=== PATIENT | male | born 1955 | race Caucasian/White ===

== ENCOUNTER 2016-12-25 12:02 | Inpatient (IN) ==
[2016-12-25 13:03] LABS: AGAP 39; ALKALINE PHOSPHATASE 126 U/L (32-122); AMYLASE 73 U/L (20-200); BUN 17 mg/dL (8-22); CALCIUM 9.4 mg/dL (8.8-10.2); CHLORIDE 94 mmol/L (98-107); COSMO 296; GOT 13 U/L (10-34); GPT 13 U/L (10-44); LIPASE 18 U/L (13-60); POTASSIUM 4.3 mmol/L (3.5-5.1); SODIUM 140 mmol/L (136-145); TCO2 7 mmol/L (25-35); TOTAL BILIRUBIN 0.54 mg/dL (0.20-1.00); TOTAL PROTEIN 8.3 g/dL (6.3-8.3)
--- NOTE | 2016-12-25 13:23 | Diag Imaging Result Document ---
PROCEDURE NAME: ABDOMEN/PELVIS W/O CONTRAST - 12/25/2016 CT ABDOMEN AND PELVIS WITHOUT INTRAVENOUS CONTRAST: COMPARISON: No comparison films. FINDINGS: The patient has had a gastric procedure. I am unsure which type. Air and fluid fills a distended stomach. There is thickening to the proximal duodenal wall. Mild distention to the proximal small bowel loops. Prominent stool throughout the colon. No abscess. No free air. Normal spleen and adrenal glands. Normal noncontrasted pancreas and liver. No calcified stones or adjacent inflammation. There are several tiny renal stones. No hydronephrosis. Moderate atherosclerosis. No aneurysmal dilatation to the aorta. The prostate is enlarged measuring at least 4.7 x 6.3 cm. The urinary bladder is distended and appears normal. IMPRESSION: 1. Prior gastric procedure with an air and fluid distended stomach. 2. Thickening to the proximal duodenum consistent with duodenitis. Possible enteritis with slight distension to the proximal small bowel loops. 3. Constipation. 4. Tiny nonobstructing renal stones. No hydronephrosis. 5. Prostatic hypertrophy. A preliminary report was given at 12:56 p.m. [facility]
[2016-12-25] MEDS ORDERED: NS 1,000 ML ONE (14:08)
[2016-12-25 14:20] LABS: BASO% 0.1 % (0.0-0.8); HEMATOCRIT 55.6 % (42.0-52.0); HEMOGLOBIN 18.5 g/dL (14.0-18.0); IMM GRAN# 0.08 X1000 (0.0-0.04); IMM GRAN% 0.5 % (0.0-0.5); LYMPH# 0.88 X1000 (1.2-3.4); LYMPH% 5.7 % (20.5-51.1); MANUAL DIFF NEEDED? NO; MCH 31.3 PG (27-31); MCHC 33.3 g/dL (33-37); MCV 93.9 FL (81-99); MONO# 0.92 X1000 (0.11-0.59); NEUT% 87.7 % (42.2-75.2); PLT 261 X1000 (130-400); RBC 5.92 XMIL (4.7-6.1)
[2016-12-25] MEDS ORDERED: NS 1,000 ML IV ONE ×4 (14:22→16:23)
[2016-12-25 14:23] LABS: ALLEN TEST YES; BE -25.3 mmoll (-3.0-3.0); BLOOD TYPE ARTERIAL; DRAW SITE R RADIAL; METHB 1.4 % (0.0-1.5); O2(CT) 24.9 mL/dL (15.0-23.0); PO2(98.6) 126 mmHg (60-100); SAMPLE BLOOD; SAO2 99.7 % (95.0-100.0); THB 18.2 g/dL (11.5-17.4)
[2016-12-25] MEDS ORDERED: HUMULIN R IV ONE ×2 (14:23→17:59)
[2016-12-25 14:25] LABS: MODALITY ROOM AIR; PCO2(98.6) 11 mmHg (35-45); pH(98.6) 7.04 (7.35-7.45)
[2016-12-25] MEDS ORDERED: ZOSYN 3.375 GM/NS 3.375 GM/50 ML IVPB IV ONE (14:33)
[2016-12-25] MEDS ORDERED: VANCOMYCIN 1 GM/NS 1 GM/250 ML IVPB IV SCH (14:45)
[2016-12-25] MEDS ORDERED: DILAUDID ONE (15:08)
[2016-12-25] MEDS ORDERED: DILAUDID IV ONE (15:15)
[2016-12-25 15:31] LABS: INR 1.08; PROTIME 11.4 Seconds (9.2-11.7); PTT 23.8 Seconds (22.0-36.0)
[2016-12-25] MEDS ORDERED: SODIUM CHLORIDE 0.9% INJ PRN (15:38)
[2016-12-25] MEDS ORDERED: ZOFRAN IV PRN ×2 (15:38→17:59)
[2016-12-25] MEDS ORDERED: PHENERGAN IV PRN (15:38)
[2016-12-25] MEDS ORDERED: SODIUM CHLORIDE 0.9% INJ SCH (15:45)
[2016-12-25] MEDS: HUMULIN R 100 UNIT in NS 100 ML IV SCH ×2 (16:12→17:26)
--- NOTE | 2016-12-25 16:17 | PROVIDER DOCUMENTATION ---
This chart was entered by Elisha Sanchez Scribe, acting as scribe for Catrachito Gamez MD. HPI-Abdominal Pain/GI Problem - General Chief Complaint: Abdominal Pain Stated Complaint: POSS BOWEL OBSTRUCTION Time Seen by Provider: 12/25/16 13:58 Source: patient, family () Allergies/Adverse Reactions: Patient Allergies Allergy/AdvReac Type Severity Reaction Status Date / Time No Known Allergies Allergy Verified 12/25/16 14:19 Home Medications: Home Medication List Medication Instructions Recorded Confirmed Last Taken Type Acai Samano Extract [Acai] 1 cap PO DAILY 12/25/16 12/25/16 12/25/16 07:00 History Garlic [Garlic Oil] 1 cap PO DAILY 12/25/16 12/25/16 12/25/16 07:00 History - History of Present Illness-ABD Nature of Presenting Problems: Pt is 61 y/o M presents to the ED with abdominal pain. Pt states pain started Friday. Pt states has not had a BM since Friday. Pt states N and V. Pt denies passing of gas. Pt states gastric bypass in 1991. Abdominal Pain Onset Location: reports: RUQ, LUQ Pain Radiation: reports: no radiation Quality of Pain: reports: sharp Severity in ED: reports: severe Onset/Duration: reports: 4 days ago Timing: reports: still present, getting worse Activities at Onset: reports: light activity Modifying Factors: improves with: nothing Associated Symptoms: reports: constipation, loss of appetite, nausea, vomiting. denies: anxiety, arm pain, back/neck pain, chest pain, cough, diaphoresis, diarrhea, dizziness, EENT symptoms, fatigue, fever/chills, genitourinary problems, headaches, heartburn, joint pain, malaise, muscle aches, sinus congestion/drainage, rash, seizure, shortness of breath, sensory/motor loss, pain with inspiration, swelling/mass in abdomen, syncope, weakness, trouble walking Last BM: 4 days ago Dark Stools Present?: reports: none noticed Rectal Bleeding: reports: none Rectal Pain: reports: none Emesis Description: reports: clear Bruising or Bleeding Gums?: No Similar Symptoms Previously?: Yes Recently seen or treated by another doctor?: No Review of Systems - Adult - REVIEW OF SYSTEMS - ADULT Constitutional: denies: chills, fever Eyes: denies: blurred vision, double vision Ears, Nose, Mouth & Throat: denies: ear pain, nose pain, throat pain Cardiovascular: reports: irregular heart rate (tachy). denies: chest pain, heart murmur Respiratory: denies: cough, shortness of breath, wheezing Gastrointestinal: reports: abdominal pain (RUQ and LUQ), constipation, nausea, poor appetite, vomiting Genitourinary: denies: dysuria, hematuria Musculoskeletal: denies: bone pain, joint pain, neck pain Integumentary: denies: hives, itching Neurological: denies: dizziness/vertigo, headache/migraines, syncope Psychiatric: reports: no symptoms reported Endocrine: reports: no symptoms reported Hematologic/Lymphatic: reports: no symptoms reported Allergic/Immunologic: reports: no symptoms reported All Other Systems: Reviewed and Negative Past History - Adult - PAST MEDICAL HISTORY-ADULT Review of Records: reports: Nursing Assessment Review, Medications Reviewed, Social history reviewed & non-contributory. Major Childhood Illnesses: reports: denies history Cardiovascular: reports: HTN Respiratory: reports: denies history Gastrointestinal: reports: denies history Obstetrical/Gynecological: reports: denies history Genitourinary: reports: denies history Musculoskeletal: reports: denies history Neurological: reports: denies history Endocrine/Immune: reports: Diabetes Other Conditions: reports: denies history - PRIOR SURGERIES/PROCEDURES Surgical/Procedure History: reports: appendectomy - IMMUNIZATION STATUS Childhood Immunizations: See Nurse Assessment Flu Vaccine: See Nurse Assessment - FAMILY HISTORY Family History: reviewed, not pertinent - SOCIAL HISTORY Smoking: denies Substance Use: alcohol Alcohol Use Frequency: rarely Number of drinks per typical drinking period:: 2 drinks Living Situation: family Physical Exam-General - PHYSICAL EXAM-ADULT Initial Vital Signs Reviewed: Yes - CONSTITUTIONAL General Appearance: alert, severe distress. negative: appears well (ill in appearance) - EYES Eyes: PERRL/EOMI, pale conjunctivae - HEAD, EARS, NOSE, MOUTH & THROAT HENMT: normocephalic/atraumatic, normal ENT inspection. negative: moist mucous membranes (dry) - NECK Neck: supple, normal inspection - RESPIRATORY Respiratory: chest non-tender, lungs clear, increased rate - CARDIOVASCULAR Cardiovascular: normal peripheral pulses, no edema, tachycardia - GASTROINTESTINAL (ABDOMEN) Abdominal Exam: abnormal bowel sounds (hypo active bowel sounds), distended, guarding, tenderness (RUQ and LUQ). negative: soft - LYMPHATIC Lymphatic: no adenopathy - MUSCULOSKELETAL Back Exam: normal inspection, no CVA tenderness, no vertebral tenderness Extremity: normal range of motion, non-tender - SKIN Integumentary: normal color, normal turgor, warm/dry - NEUROLOGIC Neurologic: grossly normal, no motor/sensory deficits - PSYCHIATRIC Psych/Mental Status: normal mood/affect, oriented x 3 Progress - PLAN OF CARE/RESULTS Progress/Plan/Lab Results: Vital Signs - 8 hr 12/25/16 12:06 Temperature 97.5 F L Pulse Rate 130 H Respiratory Rate 18 Blood Pressure 198/93 O2 Sat by Pulse Oximetry 99 Laboratory Results - last 24 hr 12/25/16 12/25/16 12:20 12:20 WBC Cancelled RBC Cancelled Hgb Cancelled Hct Cancelled MCV Cancelled MCH Cancelled MCHC Cancelled RDW Std Deviation Cancelled Plt Count Cancelled MPV Cancelled Immature Gran % (Auto) Cancelled Neut % (Auto) Cancelled Lymph % (Auto) Cancelled [place] % (Auto) Cancelled Eos % (Auto) Cancelled Baso % (Auto) Cancelled Immature Gran # (Auto) Cancelled Neut # (Auto) Cancelled Lymph # (Auto) Cancelled [place] # (Auto) Cancelled Eos # (Auto) Cancelled Baso # (Auto) Cancelled Corrected WBC (Man) Cancelled Sodium 140 Potassium 4.3 Chloride 94 L Carbon Dioxide 7 L Anion Gap 39 BUN 17 Creatinine 1.2 Estimated GFR/1.73 m2 > 60 BUN/Creatinine Ratio 14 Glucose 373 H Calculated Osmolality 296 Calcium 9.4 Total Bilirubin 0.54 AST 13 ALT 13 Alkaline Phosphatase 126 H Total Protein 8.3 Albumin 5.0 Globulin 3.3 Albumin/Globulin Ratio 1.5 Amylase 73 Lipase 18 Orders Category Date Time Status ABDOMEN/PELVIS W/O CONTRAST [CT] Stat Exams 12/25/16 12:18 Completed ABG [RESP] Routine Lab 12/25/16 14:09 Ordered AMYLASE [CHEM] Stat Lab 12/25/16 12:20 Completed CBC WITH ELECTRONIC DIFF [HEME] Stat Lab 12/25/16 13:43 Results COMPREHENSIVE METABOLIC PANEL [CHEM] Stat Lab 12/25/16 12:20 Completed LIPASE [CHEM] Stat Lab 12/25/16 12:20 Completed 0.9% Sodium Chloride Inj [Ns] 1,000 ml Med 12/25/16 14:08 Discontinued .ROUTE As Directed Result Diagrams: 12/25/16 13:43 12/25/16 12:20 - CT/MRI 1 CT Study: Abdomen Impression: Abnormal (distended stomach with air and fluid. thickening to the duodenum and mild distention to the proximal small bowel loops -suspect duodenitis and enteritis. constipation. tiny renal stone. no hydronephrosis. prostatic hyperytrophy.) CT Results: prior gastric procedure. not sure what type. - CONSULTS/PCP/HOSPITALIST Notification #1 *Consult/PCP/Hospitalist*: Dr. Alcala Time Discussed: 14:50 Reason/Comments: Dr. Gamez consulted with Dr. Alcala about admit of Pt Consult Disposition: Admit Departure - Departure Time of Disposition Decision: 14:50 DIAGNOSIS: Acute metabolic encephalopathy Disposition: ADMITTED INPATIENT 09 Certified Medical Emergency: Emergent Condition: Critical Referrals and Follow-Ups: Margarito Walsh, [Primary Care Provider] - - Critical Care Note This patient required my direct & personal management of CC.: Yes Total Time (mins): 45 Critical Care Statement: This patient required my direct personal management to treat or rule out processes, the absence of which, could potentiallly result in sudden, clinically significant life or limb threatening deterioration. This chart was documented by the indicated scribe, (Elisha Sanchez Scribe) and accurately reflects the services I performed and decisions made by me, Catrachito Gamez MD, as attested by the provider's signature.
--- NOTE | 2016-12-25 16:42 | HISTORY AND PHYSICAL ---
PRIMARY CARE PHYSICIAN: Dr. Margarito Walsh. CHIEF COMPLAINT: Abdominal pain, nausea, vomiting. HISTORY OF PRESENT ILLNESS: Mr. Cruz is a 61-year-old, male with a history of type 2 diabetes, and hypertension who comes to the ER today with 3 days of worsening abdominal pain, nausea, and vomiting. The pain began on Friday after he ate and he started having upper quadrant pain on both sides, this progressed to nausea and vomiting. He denies any diarrhea or fevers but today he started having intense chills. He denies any hematochezia or hematemesis, in fact he has had no bowel movements or passed any gas since Friday. The pain progressed and he is in severe pain which brought him to the ER. He denies any chest pain or shortness of breath. No cough, congestion. No lower extremity edema or pain. In the ER, he had a CT of the abdomen and pelvis done and it showed proximal duodenitis and possible enteritis with slight distention of the proximal small bowel loops, constipation and air and fluid distended stomach. His lab work is also consistent with sepsis and diabetic ketoacidosis. Blood cultures have been obtained. Surgery has been consulted and DKA protocol has been initiated. He is now going to be admitted to the ICU. PAST MEDICAL HISTORY: 1. Hypertension. 2. Diabetes mellitus. 3. History of obesity status post gastric bypass surgery. PAST SURGICAL HISTORY: 1. Gastric ring placement in 1991 2. Appendectomy 3. Right shoulder arthroscopy. SOCIAL HISTORY: There is no history of tobacco use. He drinks rare alcohol. There is no drug use. He is . is at the bedside. FAMILY HISTORY: Noncontributory. REVIEW OF SYSTEMS: Fourteen-point review of systems obtained and found to be negative with the exception of the HPI. HOME MEDICATIONS: Currently being compiled. ALLERGIES: No known drug allergies. PHYSICAL EXAMINATION: VITAL SIGNS: Blood pressure is 185/143, heart rate 133, respiratory rate 22, O2 saturation 98% on room air. Temperature is 97.5 degrees. GENERAL: This is a well-developed, well-nourished, male, lying in hospital bed. No acute distress. NEUROLOGIC: The patient is awake, alert, and oriented. Follows commands without focal deficits. HEENT: Head is atraumatic and normocephalic. Pupils are equal, round, and reactive to light. Oral mucosa is moist. Trachea is midline. There is no JVD or carotid bruits. CHEST: Clear to auscultation bilaterally. CV: Tachy and regular. S1, S2 is noted. GI: Slightly distended and severely tender to palpation in both upper quadrants. Bowel sounds are hypoactive. EXTREMITIES: Without edema, clubbing or cyanosis. Pulses are palpable bilaterally. DIAGNOSTIC DATA: CT of abdomen and pelvis, please see HPI. LABORATORY DATA: WBC 15.46, hemoglobin 18.5, hematocrit 55.6, platelet count 261,000. PT 11.4, INR 1.08. ABG on room air pH 7.04, CO2 11, O2 126, bicarb 5.2, lactate 2.6. Sodium 140, potassium 4.3, chloride 94, CO2 7, anion gap 39. BUN 17, creatinine 1.2, glucose is 373. Alkaline phosphatase is 126. Other LFTs are within normal limits. Troponin is negative. Lipase 18. ASSESSMENT AND PLAN: 1. Sepsis: Criteria is met with leukocytosis, tachycardia and source of colitis /duodenitis. Blood cultures have been obtained and aggressive fluid resuscitation and broad-spectrum antibiotics have been initiated. 2. DKA: Likely secondary to sepsis and colitis. DKA protocol has been initiated. We will continue to follow his electrolytes and fluid volume status closely. 3. Abdominal pain/colitis: Antibiotics have been initiated and we have consulted Surgery given the pain is out of proportion to his CT findings. There is no evidence of perforation on CT. An NG tube has been ordered and this should help with some of his symptoms. 4. We are going to check hemoglobin A1c, thyroid function in the morning. He will be going to the ICU for the first 24 hours at least. 5. DVT prophylaxis with SCDs and TEDs given the possibility of surgery. We have also ordered IV Protonix given his duodenitis. Further recommendations to follow. Dictated by JOO Aggarwal for Katie Alcala MD cc: JOO Aggarwal MD Thomas E. Lockard, DO The patient was seen and examined by me. I agree with the assessment and plan as dictated. The plan of care was discussed with the patient and his at the bedside. CHERYL
[2016-12-25] MEDS: PROTONIX IV SCH (16:50)
[2016-12-25 17:36] LABS: URINE MICRO REVIEW NEEDED? NO; URINE SOURCE CLEAN CATCH
[2016-12-25 17:47] LABS: BILIRUBIN URINE NEGATIVE (NEGATIVE); BLOOD URINE SMALL (NEGATIVE); COLOR YELLOW; GLUCOSE URINE >1000 mg/dL (NEGATIVE); LEUKOCYTES URINE NEGATIVE (NEGATIVE); NITRITE URINE NEGATIVE (NEGATIVE); PROTEIN URINE 50 mg/dL (NEGATIVE); SP GRAVITY URINE 1.016; TURBIDITY URINE CLEAR (CLEAR); UR EPITHELIAL CELLS <10 /HPF (<10); URINE BACTERIA NEGATIVE /HPF; URINE RBC <10 /HPF (<10); URINE WBC <10 /HPF (<10); UROBILINOGEN URINE NORMAL (NORMAL)
[2016-12-25] MEDS ORDERED: POTASSIUM CHLORIDE 40 MEQ in NS 250 ML IV PRN (17:59)
[2016-12-25] MEDS ORDERED: HUMULIN R 100 UNIT in NS 99 ML IV SCH (17:59)
[2016-12-25] MEDS ORDERED: SODIUM PHOSPHATE 30 MMOL in D5W 250 ML IV PRN (17:59)
[2016-12-25] MEDS ORDERED: D50W SYRINGE IV PRN (17:59)
[2016-12-25] MEDS ORDERED: NS 1,000 ML IV SCH (17:59)
[2016-12-25] MEDS ORDERED: MAGNESIUM SULFATE 2 GM/S.W.I. 2 GM/50 ML IVPB IV PRN (17:59)
[2016-12-25 18:00] LABS: ALLEN TEST YES; BE -21.1 mmoll (-3.0-3.0); BLOOD TYPE ARTERIAL; DRAW SITE R RADIAL; METHB 1.7 % (0.0-1.5); PO2(98.6) 96 mmHg (60-100); SAMPLE BLOOD; SAO2 99.2 % (95.0-100.0); THB 16.3 g/dL (11.5-17.4)
[2016-12-25 18:02] LABS: pH(98.6) 7.15 (7.35-7.45)
[2016-12-25 18:03] LABS: MODALITY ROOM AIR; PCO2(98.6) 15 mmHg (35-45)
[2016-12-25] MEDS: DILAUDID IV PRN (18:12)
[2016-12-25 20:04] LABS: AGAP 28; BUN 20 mg/dL (8-22); CALCIUM 7.9 mg/dL (8.8-10.2); CHLORIDE 107 mmol/L (98-107); COSMO 298; POTASSIUM 3.7 mmol/L (3.5-5.1); SODIUM 142 mmol/L (136-145); TCO2 7 mmol/L (25-35)
[2016-12-25] MEDS: 1/2 NS 1,000 ML IV SCH (20:30)
[2016-12-25] MEDS: POTASSIUM CHLORIDE 20 MEQ in NS 100 ML IV PRN (20:50)
[2016-12-25 21:33] LABS: ALLEN TEST YES; BE -15.6 mmoll (-3.0-3.0); BLOOD TYPE ARTERIAL; DRAW SITE R RADIAL; METHB 1.5 % (0.0-1.5); O2(CT) 21.2 mL/dL (15.0-23.0); PCO2(98.6) 25 mmHg (35-45); PO2(98.6) 90 mmHg (60-100); SAMPLE BLOOD; SAO2 99.5 % (95.0-100.0); THB 15.7 g/dL (11.5-17.4); pH(98.6) 7.22 (7.35-7.45)
[2016-12-25 21:35] LABS: MODALITY ROOM AIR
[2016-12-25 21:58] LABS: AGAP 29; ALBUMIN 3.9 g/dL (3.5-5.0); BUN 19 mg/dL (8-22); CALCIUM 8.2 mg/dL (8.8-10.2); CHLORIDE 109 mmol/L (98-107); COSMO 300; POTASSIUM 3.9 mmol/L (3.5-5.1); SODIUM 144 mmol/L (136-145); TCO2 6 mmol/L (25-35)
[2016-12-25] MEDS: ZOSYN 3.375 GM/NS 3.375 GM/50 ML IVPB IV SCH (23:00)
[2016-12-26 00:43] LABS: AGAP 21; BUN 19 mg/dL (8-22); CALCIUM 8.2 mg/dL (8.8-10.2); CHLORIDE 110 mmol/L (98-107); COSMO 297; POTASSIUM 4.3 mmol/L (3.5-5.1); SODIUM 144 mmol/L (136-145); TCO2 13 mmol/L (25-35)
[2016-12-26 02:01] LABS: ALLEN TEST YES; BE -12.8 mmoll (-3.0-3.0); BLOOD TYPE ARTERIAL; DRAW SITE R RADIAL; METHB 1.5 % (0.0-1.5); O2(CT) 21.2 mL/dL (15.0-23.0); PCO2(98.6) 28 mmHg (35-45); PO2(98.6) 90 mmHg (60-100); SAMPLE BLOOD; SAO2 99.6 % (95.0-100.0); THB 15.7 g/dL (11.5-17.4); pH(98.6) 7.26 (7.35-7.45)
[2016-12-26 02:03] LABS: MODALITY ROOM AIR
[2016-12-26] MEDS: DILAUDID IV PRN ×5 (02:35→20:50)
[2016-12-26] MEDS: POTASSIUM CHLORIDE 20 MEQ in NS 100 ML IV PRN ×4 (03:12→16:12)
[2016-12-26] MEDS: D5 NS 1,000 ML IV SCH ×4 (04:02→11:30)
[2016-12-26] MEDS: 1/2 NS 1,000 ML IV SCH ×2 (04:11→11:38)
[2016-12-26] MEDS: ZOSYN 3.375 GM/NS 3.375 GM/50 ML IVPB IV SCH ×3 (04:45→15:54)
[2016-12-26 05:34] LABS: ALLEN TEST YES; BE -12.1 mmoll (-3.0-3.0); BLOOD TYPE ARTERIAL; DRAW SITE L RADIAL; METHB 1.3 % (0.0-1.5); O2(CT) 20.9 mL/dL (15.0-23.0); PCO2(98.6) 29 mmHg (35-45); PO2(98.6) 89 mmHg (60-100); SAMPLE BLOOD; SAO2 100.6 % (95.0-100.0); THB 15.4 g/dL (11.5-17.4); pH(98.6) 7.27 (7.35-7.45)
[2016-12-26 05:35] LABS: MODALITY ROOM AIR
[2016-12-26] MEDS: VANCOMYCIN 1 GM/NS 1 GM/250 ML IVPB IV SCH ×2 (05:40→17:50)
[2016-12-26 05:44] LABS: HEMATOCRIT 43.8 % (42.0-52.0); HEMOGLOBIN 15.1 g/dL (14.0-18.0); MCH 31.9 PG (27-31); MCHC 34.5 g/dL (33-37); MCV 92.4 FL (81-99); MPV 9.5 FL (7.4-10.4); RBC 4.74 XMIL (4.7-6.1)
[2016-12-26 06:05] LABS: HEMOGLOBIN A1C 13.1 % (4.8-6.0)
[2016-12-26 06:33] LABS: HDL 39 mg/dL (35-55); LDL 115 mg/dL; TRIGLYCERIDES 87 mg/dL (39-160); VLDL 17 mg/dL
[2016-12-26 06:44] LABS: AGAP 18; BUN 17 mg/dL (8-22); CALCIUM 8.2 mg/dL (8.8-10.2); CHLORIDE 115 mmol/L (98-107); COSMO 299; POTASSIUM 3.9 mmol/L (3.5-5.1); SODIUM 146 mmol/L (136-145); TCO2 13 mmol/L (25-35)
--- NOTE | 2016-12-26 07:45 | Diag Imaging Result Document ---
PROCEDURE NAME: FLAT/UPRIGHT ABD/1 VIEW CHEST - 12/26/2016 PLAIN RADIOGRAPH OF THE CHEST AND ABDOMEN, 3 VIEWS: COMPARISON: None available. FINDINGS: There is increased stool seen throughout the colon suggesting constipation. There is no obstructive bowel pattern. There is no evidence of large-volume free abdominal gas. There is no discrete organomegaly. Inspiration is suboptimal. There is suggestion of mild bibasilar atelectasis. The lungs are grossly clear, otherwise. Cardiac silhouette is unremarkable. There is an NG tube in place but the tip is probably only barely below the gastroesophageal junction. Advancement of 4-5 cm is recommended for a more optimal position. IMPRESSION: 1. Constipation. 2. Suboptimal positioning of the NG tube. 3. Mild atelectasis at the lung base.
[2016-12-26] MEDS ORDERED: DILAUDID IV ONE (07:47)
[2016-12-26 08:01] LABS: ACETONE SERUM SMALL (NEGATIVE)
[2016-12-26] MEDS ORDERED: LOVENOX SUBQ SCH (09:00)
[2016-12-26 10:21] LABS: BLOOD TYPE ARTERIAL; PCO2(98.6) 32 mmHg (35-45); PO2(98.6) 86 mmHg (60-100); SAMPLE BLOOD; pH(98.6) 7.29 (7.35-7.45)
[2016-12-26 10:22] LABS: METHB 0.8 % (0.0-1.5); MODALITY ROOM AIR; O2(CT) 20.3 mL/dL (15.0-23.0); SAO2 100.9 % (95.0-100.0); THB 14.9 g/dL (11.5-17.4)
[2016-12-26 10:23] LABS: ALLEN TEST YES; DRAW SITE L RADIAL
[2016-12-26 10:27] LABS: AGAP 14; BUN 16 mg/dL (8-22); CALCIUM 8.2 mg/dL (8.8-10.2); CHLORIDE 115 mmol/L (98-107); COSMO 299; POTASSIUM 4.1 mmol/L (3.5-5.1); SODIUM 146 mmol/L (136-145); TCO2 17 mmol/L (25-35)
--- NOTE | 2016-12-26 10:59 | CONSULTATION ---
DATE OF CONSULTATION: 12/26/2016 Mr. Catrachito Cruz is a 61-year-old white male who was admitted yesterday through the emergency department to our ICU with significant dehydration and metabolic acidosis. He had a 3-day history of dry heaving or vomiting. Friday he was running a chain saw at his home to take care a down branch. That evening he began experiencing upper abdominal pain and had vomiting. 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 He would throw-up but no fluid would come out. His upper abdominal pain was intermittent and persistent and Friday he called his daughter, who lives in [place], to come back to [place] because he was sick. He was brought to the emergency department with upper abdominal pain and dry heaves. He was admitted to our ICU for resuscitation. We were asked to evaluate him because of his abdominal pain and his persistent vomiting. He states in 1991 in [place], some type of gastric ring was placed for weight loss. PAST MEDICAL HISTORY: He is a diabetic. He has lost weight over the last year. He used to weigh 230 pounds, at [place] he was 175 pounds, and now weighs 154 pounds. His family feels that he has had intermittent symptoms of this type for sometime. He admits to gastroesophageal reflux disease. He has been diagnosed with prostatitis and treated by Dr. Palafox in the past. MEDICATIONS: None, except vitamins. ALLERGIES: No known drug allergies. 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 He lives in [place]. He has a family member that is a nurse and actually works at [employer] in [place] and is back at [place] frequently. That is his . He also has a daughter. He does not smoke. FAMILY HISTORY: Noncontributory. REVIEW OF SYSTEMS: A 14-point review of systems was performed. Except for the history of present illness, was essentially negative. PHYSICAL EXAMINATION: General Appearance: On exam, Mr. Cruz is in the ICU. He is a middle aged male. He has an NG tube in place, which is a small NG tube. He is awake, cooperative. He has required some pain medicine for some upper abdominal discomfort. Vital Signs: His vital signs have improved since admission. He is afebrile. His heart rate is 81. Blood pressure 127/68. O2 saturation 98% on room air. He is 5 feet, 8 inches. He weighs 154 pounds. HEENT/Neck: He is voiding. He has no jaundice. No oral lesions. No cervical or supraclavicular lymphadenopathy. Heart: Has a regular rate. Abdomen: Flat. It seems to be tender in the upper abdomen, but he does not have an acute abdomen. He has an upper midline incision which is well-healed without, evidence of hernia. He had no costovertebral tenderness. Rectal Examination: Was not performed. Extremities: He does have palpable femoral pulses. No peripheral edema. Neurological: He has no focal deficits. LABORATORY DATA: On admission his white blood cell count was 15.4 and that is dropped to 11 this morning. His hematocrit on admission was 55 and it is 43 this morning. His acidosis has improved. His pH is 7.27. His base deficit still 12, but it was 21 on admission. His lactate is 0.60. His glucose is 214 at 2:50. BUN and creatinine are 17 and 0.9. His carbon dioxide has increased from 7 to 13. He is on vancomycin and Zosyn prophylactically. He has a receiving IV fluids at 125 mL an hour. He is also receiving Nexium. A CT scan of his abdomen and pelvis performed yesterday documents this gastric ring. This ring create the small pouch proximally and the normal stomach distally. There was fluid and air in the stomach. There was no obvious twisting of the stomach that is possible. He also had some duodenitis. He had plenty of stool in his colon. The rest of the small bowel was not dilated. There was no evidence of free air. An abdominal film today suggested that the NG tube may be in poor position and it has been advanced since that x-ray. Again, there is no evidence of free air. His chest x-ray is clear, except for some atelectasis. IMPRESSION: A 61-year-old man with significant weight loss over the last year, with a history of some type of gastric ring that was placed as an open procedure and [place] in 1991. I feel that this ring has been causing him symptoms, but these symptoms have become more acute over the last 3 days. My inclination is that this gastric ring most likely will have to be removed because of his symptoms. The family is interested in seeing a bariatric surgeon for possible redo surgery if the ring is removed. I have reviewed all his information with his at the bedside in our ICU and I will speak with the hospitalists. I do agree with continued IV hydration and NG suction at this time. cc: Julita Pereira MD
[2016-12-26] MEDS ORDERED: SODIUM PHOSPHATE IV ONE (12:00)
[2016-12-26] MEDS ORDERED: NS IV ONE (12:00)
--- NOTE | 2016-12-26 12:21 | PROGRESS NOTE ---
DATE: 12/26/2016 SUBJECTIVE: The patient continues to complain of persistent lower abdominal pain. He has had very little output out of the NG tube. OBJECTIVE: Vital Signs: Temperature 97.8 degrees, blood pressure 127/68, heart rate 81, respirations 13, O2 saturation 98% on room air. General: This is an elderly male, lying in bed in no acute distress. HEENT: Head normocephalic, atraumatic. Heart: S1 and S2 normal. Regular rate and rhythm. Lungs: Clear to auscultation bilaterally. Abdomen: Hypoactive bowel sounds. Soft. Diffuse tenderness. Extremities: No edema. No cyanosis. No calf tenderness. Neurologic: The patient is alert oriented x3. LABORATORIES: White blood cell count 11, hemoglobin 15, hematocrit 43, platelets 187,000. Sodium 146, potassium 4.1, chloride 115, CO2 of 17, BUN 16, creatinine 1, glucose 232, calcium 8.2, phosphorus 1.8. ASSESSMENT AND PLAN: 1. Diabetic ketoacidosis. The anion gap has closed. We will continue on the insulin drip for now, since the patient is n.p.o. We will continue to monitor the Accu-Cheks every hour. 2. Abdominal pain with a distended stomach. There is concern that the patient's gastric ring may need to be removed. The case was discussed with Dr. Pereira, who also agreed with transfer to a facility equipped with a bariatric surgeon. Will attempt to transfer the patient to another facility for further evaluation and treatment. In the meantime, the patient remain n.p.o. We may need to consider starting TPN. 3. Hypertension. Controlled. 4. Hypophosphatemia. We will replace the patient's phosphorus. 5. Gastrointestinal prophylaxis. Continue on IV Protonix. 6. Deep vein thrombosis prophylaxis. Continue with SCDs. cc: Katie Alcala MD
[2016-12-26 15:08] LABS: AGAP 19; BUN 14 mg/dL (8-22); CALCIUM 7.5 mg/dL (8.8-10.2); CHLORIDE 115 mmol/L (98-107); COSMO 313; POTASSIUM 3.6 mmol/L (3.5-5.1); SODIUM 150 mmol/L (136-145); TCO2 16 mmol/L (25-35)
[2016-12-26] MEDS ORDERED: 1/2 NS 1,000 ML IV SCH ×2 (15:50→16:00)
[2016-12-26] MEDS: PROTONIX IV SCH (15:54)
[2016-12-26] MEDS ORDERED: BENADRYL IM PRN (16:00)
--- NOTE | 2016-12-26 20:59 | DISCHARGE SUMMARY ---
ADMISSION DATE: 12/25/2016 DISCHARGE DATE: 12/26/2016 FINAL DISCHARGE DIAGNOSES: 1. Severe diabetic ketoacidosis. 2. Distended stomach with a nonfunctioning gastric ring. 3. Leukocytosis. 4. Hypertension. CONSULTATIONS REQUESTED DURING THIS HOSPITAL STAY: General Surgery consultation with Dr. Pereira. IMAGING PERFORMED DURING THIS HOSPITAL STAY: CT of the abdomen and pelvis which revealed the prior gastric procedure with air and fluid in the stomach, duodenitis and possible enteritis. HOSPITAL COURSE: Mr. Cruz is a 61-year-old male with a history of a gastric ring procedure, hypertension and diabetes mellitus who presented to the ER with a chief complaint of abdominal pain as well as nausea and vomiting. On admission, the patient was noted to be severely acidotic with a CO2 of 7 on the basic metabolic profile and pH of 7.0 on ABG. The patient was noted to have moderate ketones and deemed to be in DKA. While in the ER, the patient was started on aggressive IV fluid hydration as well as an insulin drip. A CT of the abdomen and pelvis was done that revealed a gastric ring, air and fluid in the stomach which was noted to be distended. An NG tube was placed to low intermittent suction. The patient was then transferred to ICU. The patient was started on DKA protocol and slowly over the course of the hospital stay the patient's anion gap closed. The patient was seen by Dr. Pereira today at which time he recommended the patient be transferred to a facility with a bariatric surgeon available. I spoke with Dr. Murray, a GI surgeon at [facility] and the patient was accepted for transfer to [facility] for further treatment and evaluation. cc: DO Katie Webster MD
[2016-12-26 23:21] VITALS: BP 183/101
== END 2016-12-26 22:20 | disposition short-term general hospital (02) ==
LOC: ED 12:02 → ICU 12:03
PROVIDERS: ATTEND Internal Medicine